=== PATIENT | female | born 1955 | race Caucasian/White ===

== ENCOUNTER 2024-04-22 16:10 | Inpatient (IN) | payer OTHER ==
[~2024-04-22] VITALS: Ht 172.7 cm; Wt 144.7 kg
[~2024-04-22 16:10] MED LIST: CEPH500C16 PO; LISI-953 PO
[2024-04-22 16:13] VITALS: BP 131/70; PULSE 88; RESP 16; TEMP 98; O2SAT 92
[2024-04-22] MEDS: ACETAMINOPHEN EXTRA STRENGTH 500 MG TAB PO ONE (18:54)
[2024-04-22 20:34] LABS: BASOPHILS # (AUTO) 0.1 K/uL (0.00-0.22); BASOPHILS % (AUTO) 0.7 % (0.0-2.0); EOSINOPHILS # (AUTO) 0.5 K/uL (0-0.4); EOSINOPHILS % (AUTO) 6.1 % (0.0-4.0); HEMATOCRIT 41.3 % (36-48); HEMOGLOBIN 13.9 g/dL (12.0-16.0); LYMPHOCYTES # (AUTO) 3.1 K/uL (2.5-16.5); LYMPHOCYTES % (AUTO) 34.2 % (20.5-51.1); MEAN CORPUSCULAR HEMOGLOBIN 31 pg (27-31); MEAN CORPUSCULAR HGB CONC 34 g/dL (33-37); MEAN CORPUSCULAR VOLUME 91.9 fL (80-94); MONOCYTES # (AUTO) 0.6 K/uL (0.8-1.0); MONOCYTES % (AUTO) 6.2 % (1.7-9.3); NEUTROPHILS # (AUTO) 4.7 K/uL (1.8-7.7); NEUTROPHILS % (AUTO) 52.8 % (42.2-75.2); PLATELET COUNT (AUTO) 246 K/uL (140-450); RED CELL DISTRIBUTION WIDTH 13.4 % (11.6-13.7)
[2024-04-22 20:45] LABS: ANION GAP 8.8 (8-16); CALCIUM 9.2 mg/dL (8.5-10.1); CARBON DIOXIDE 30.8 mmol/L (21-32); CREATININE 0.8 mg/dL (0.6-1.3); POTASSIUM 3.6 mmol/L (3.5-5.1)
[2024-04-22 22:36] LABS: APPEARANCE,URINE CLEAR (CLEAR); BILIRUBIN,URINE NEGATIVE (NEGATIVE); BLOOD, URINE NEGATIVE (NEGATIVE); COLOR,URINE YELLOW (YELLOW); LEUKOCYTE ESTERASE ,URINE 1+ (NEGATIVE); NITRITE, URINE POSITIVE (NEGATIVE); PROTEIN,URINE TRACE (NEGATIVE); UGLUCOSE 2+ (NEGATIVE); UROBILINOGEN,URINE 0.2 EU/dL (0.2 - 1)
[2024-04-22 22:41] LABS: BACTERIA,URINE >30 (MANY) /HPF (None Seen); MUCUS,URINE 1+ /LPF (None Seen); RBC,URINE 0-5 /HPF (0-5); SQUAMOUS EPITHELIAL CELL,UR 0-3 (FEW) /LPF (0-3 (FEW)); WBC,URINE TOO MANY TO COUNT /HPF (0-5)
[2024-04-22] MEDS ORDERED: NITR100C7 PO (22:51)
[2024-04-22] MEDS ORDERED: ACET500T99 PO ×2 (22:51→23:51)
[2024-04-22] MEDS ORDERED: ALBUTEROL 0.083% 2.5 MG/3 ML NEBU INH ONE (23:41)
[2024-04-22] MEDS ORDERED: IPRATROPIUM 0.02% 0.5 MG/2.5 ML NEBU INH ONE (23:41)
[2024-04-22] MEDS ORDERED: CALC500C17 PO (23:51)
[2024-04-22] MEDS ORDERED: CLON0.1T16 PO (23:51)
[2024-04-22] MEDS ORDERED: ACET-2619 PO (23:51)
[2024-04-22] MEDS ORDERED: DULO60EC1 PO (23:51)
[2024-04-22] MEDS ORDERED: IBUP-2213 PO (23:51)
[2024-04-22] MEDS ORDERED: FLEPED RC (23:51)
[2024-04-22] MEDS ORDERED: ASPI-1822 PO (23:51)
[2024-04-22] MEDS ORDERED: GLUC1PDS1 SUBQ (23:51)
[2024-04-22] MEDS ORDERED: GABA300C PO (23:51)
[2024-04-22] MEDS ORDERED: BISA-213 RC (23:51)
[2024-04-22] MEDS ORDERED: CRAN450T5 PO (23:51)
[2024-04-22] MEDS ORDERED: ALBU0.0912 INH (23:51)
[2024-04-22] MEDS ORDERED: BIOT10002 PO (23:51)
[2024-04-22] MEDS ORDERED: FLOR250 PO (23:51)
[2024-04-22] MEDS ORDERED: DOCU-299 PO (23:51)
[2024-04-22] MEDS ORDERED: LANTUS SUBQ (23:57)
[2024-04-22] MEDS ORDERED: INSU100S5 SUBQ (23:57)
[2024-04-23] MEDS ORDERED: LINA5TAB PO (00:06)
[2024-04-23] MEDS ORDERED: METF-346 PO (00:06)
[2024-04-23] MEDS ORDERED: ACET-5636 PO (00:06)
[2024-04-23] MEDS ORDERED: ATRN INH (00:06)
[2024-04-23] MEDS ORDERED: LOSA-272 PO (00:06)
[2024-04-23] MEDS ORDERED: PANT40EC PO (00:06)
[2024-04-23] MEDS ORDERED: ROPI0.2523 PO (00:06)
[2024-04-23] MEDS ORDERED: METH-1681 PO (00:06)
[2024-04-23] MEDS ORDERED: LID5T TP (00:06)
[2024-04-23] MEDS ORDERED: NITR0.4T2 SL (00:06)
[2024-04-23] MEDS ORDERED: MECL-303 PO (00:06)
[2024-04-23] MEDS: IPRATROPIUM 0.02% 0.5 MG/2.5 ML NEBU INH SCH (00:31)
[2024-04-23] MEDS: ALBUTEROL 0.083% 2.5 MG/3 ML NEBU INH SCH (00:32)
[2024-04-23] MEDS ORDERED: cefTRIAXone 1,000 MG VIAL ONE (03:57)
[2024-04-23 08:05] VITALS: PULSE 72; RESP 20; O2SAT 92
[2024-04-23] MEDS ORDERED: DEXTROSE 50% 50 ML SYR IVP PRN (12:05)
[2024-04-23 12:39] LABS: BASOPHILS # (AUTO) 0.1 K/uL (0.00-0.22); EOSINOPHILS # (AUTO) 0.4 K/uL (0-0.4); EOSINOPHILS % (AUTO) 4.9 % (0.0-4.0); HEMATOCRIT 43.6 % (36-48); HEMOGLOBIN 14.6 g/dL (12.0-16.0); LYMPHOCYTES # (AUTO) 2.2 K/uL (2.5-16.5); LYMPHOCYTES % (AUTO) 27.6 % (20.5-51.1); MEAN CORPUSCULAR HEMOGLOBIN 31 pg (27-31); MEAN CORPUSCULAR HGB CONC 34 g/dL (33-37); MEAN CORPUSCULAR VOLUME 92.2 fL (80-94); MONOCYTES # (AUTO) 0.4 K/uL (0.8-1.0); MONOCYTES % (AUTO) 5.3 % (1.7-9.3); NEUTROPHILS # (AUTO) 4.8 K/uL (1.8-7.7); NEUTROPHILS % (AUTO) 61.2 % (42.2-75.2); PLATELET COUNT (AUTO) 249 K/uL (140-450); RED BLOOD CELL COUNT(AUTO) 4.74 MIL/uL (4.20-5.40); RED CELL DISTRIBUTION WIDTH 13.6 % (11.6-13.7); WHITE BLOOD COUNT (AUTO) 7.8 K/uL (4.8-10.8)
[2024-04-23 13:01] LABS: ANION GAP 9.6 (8-16); CALCIUM 9.3 mg/dL (8.5-10.1); CARBON DIOXIDE 29.9 mmol/L (21-32); CREATININE 0.7 mg/dL (0.6-1.3); POTASSIUM 3.5 mmol/L (3.5-5.1); TOTAL BILIRUBIN 0.3 mg/dL (0.0-1.0); TOTAL PROTEIN, SERUM 7.5 g/dL (6.4-8.2)
[2024-04-23 16:00] VITALS: BP 140/84; PULSE 82; RESP 20; TEMP 98.8; O2SAT 95
[2024-04-23] MEDS: MORPHINE SULFATE 4 MG/ML SYR IVP PRN (16:12)
[2024-04-23] MEDS: BLOOD GLUCOSE MONITORING 1 DEV DEV FS SCH (16:20)
[2024-04-23] MEDS: INSULIN LISPRO SLIDING SCALE 100 UNITS/ML VIAL SUBQ PRN (16:23)
[2024-04-23 20:00] VITALS: BP 177/94; PULSE 82; PULSE 96; RESP 20; TEMP 98.2; O2SAT 95; O2SAT 96
[2024-04-23 20:08] VITALS: O2SAT 95
[2024-04-23] MEDS: HYDROcodone/APAP 5/325 MG 1 TAB TAB PO PRN (20:31)
[2024-04-24 04:00] VITALS: BP 139/92; PULSE 87; RESP 19; TEMP 97.4; O2SAT 95
[2024-04-24] MEDS: cefTRIAXone 1,000 MG VIAL ONE (04:16)
[2024-04-24 07:01] LABS: BASOPHILS # (AUTO) 0.1 K/uL (0.00-0.22); EOSINOPHILS # (AUTO) 0.5 K/uL (0-0.4); EOSINOPHILS % (AUTO) 5.2 % (0.0-4.0); HEMATOCRIT 41.3 % (36-48); HEMOGLOBIN 14.1 g/dL (12.0-16.0); LYMPHOCYTES # (AUTO) 3.8 K/uL (2.5-16.5); LYMPHOCYTES % (AUTO) 43.3 % (20.5-51.1); MEAN CORPUSCULAR HEMOGLOBIN 31 pg (27-31); MEAN CORPUSCULAR HGB CONC 34 g/dL (33-37); MEAN CORPUSCULAR VOLUME 91.5 fL (80-94); MONOCYTES # (AUTO) 0.6 K/uL (0.8-1.0); MONOCYTES % (AUTO) 6.5 % (1.7-9.3); NEUTROPHILS # (AUTO) 3.9 K/uL (1.8-7.7); PLATELET COUNT (AUTO) 266 K/uL (140-450); RED BLOOD CELL COUNT(AUTO) 4.51 MIL/uL (4.20-5.40); RED CELL DISTRIBUTION WIDTH 13.5 % (11.6-13.7); WHITE BLOOD COUNT (AUTO) 8.8 K/uL (4.8-10.8)
[2024-04-24 07:42] LABS: ANION GAP 9.8 (8-16); CALCIUM 9.1 mg/dL (8.5-10.1); CARBON DIOXIDE 27.6 mmol/L (21-32); CREATININE 0.8 mg/dL (0.6-1.3); POTASSIUM 3.4 mmol/L (3.5-5.1); TOTAL BILIRUBIN 0.2 mg/dL (0.0-1.0); TOTAL PROTEIN, SERUM 7.3 g/dL (6.4-8.2)
[2024-04-24 08:00] VITALS: BP 165/78; PULSE 83; RESP 18; TEMP 96.9; O2SAT 100
[2024-04-24] MEDS: ACETAMINOPHEN 325 MG TAB PO PRN (10:00)
[2024-04-24 16:00] VITALS: BP 159/84; PULSE 83; RESP 18; TEMP 97.6; O2SAT 93
[2024-04-24 20:00] VITALS: BP 155/76; PULSE 86; RESP 18; TEMP 97.5; O2SAT 98
[2024-04-24 20:13] VITALS: O2SAT 98
[2024-04-24] MEDS: ZOLPIDEM 5 MG TAB PO PRN (22:16)
[2024-04-24] MEDS: INSULIN LANTUS 100 UNITS/ML 10 ML VIAL SUBQ SCH (22:25)
[2024-04-25 04:00] VITALS: BP 158/95; PULSE 93; RESP 18; TEMP 98; O2SAT 95
[2024-04-25 06:48] LABS: BASOPHILS % (AUTO) 0.6 % (0.0-2.0); EOSINOPHILS # (AUTO) 0.4 K/uL (0-0.4); EOSINOPHILS % (AUTO) 5.2 % (0.0-4.0); HEMATOCRIT 43.1 % (36-48); HEMOGLOBIN 14.6 g/dL (12.0-16.0); LYMPHOCYTES # (AUTO) 2.7 K/uL (2.5-16.5); LYMPHOCYTES % (AUTO) 31.9 % (20.5-51.1); MEAN CORPUSCULAR HEMOGLOBIN 31 pg (27-31); MEAN CORPUSCULAR HGB CONC 34 g/dL (33-37); MEAN CORPUSCULAR VOLUME 91.2 fL (80-94); MONOCYTES # (AUTO) 0.6 K/uL (0.8-1.0); MONOCYTES % (AUTO) 7.6 % (1.7-9.3); NEUTROPHILS # (AUTO) 4.6 K/uL (1.8-7.7); NEUTROPHILS % (AUTO) 54.7 % (42.2-75.2); PLATELET COUNT (AUTO) 263 K/uL (140-450); RED BLOOD CELL COUNT(AUTO) 4.72 MIL/uL (4.20-5.40); RED CELL DISTRIBUTION WIDTH 13.4 % (11.6-13.7); WHITE BLOOD COUNT (AUTO) 8.4 K/uL (4.8-10.8)
[2024-04-25 07:11] LABS: ALBUMIN 3.1 g/dL (3.4-5.0); ANION GAP 9.7 (8-16); CALCIUM 9.3 mg/dL (8.5-10.1); CARBON DIOXIDE 28.7 mmol/L (21-32); CREATININE 0.8 mg/dL (0.6-1.3); POTASSIUM 3.4 mmol/L (3.5-5.1); TOTAL BILIRUBIN 0.3 mg/dL (0.0-1.0); TOTAL PROTEIN, SERUM 7.5 g/dL (6.4-8.2)
[2024-04-25 08:00] VITALS: BP 185/91; PULSE 78; RESP 18; TEMP 98.1; O2SAT 97
[2024-04-25] MEDS: lisinopriL 20 MG TAB PO SCH (08:51)
[2024-04-25] MEDS ORDERED: LEVO750T75 PO (14:54)
[2024-04-25] MEDS: POTASSIUM CHLORIDE 10 MEQ TABER PO SCH (14:55)
[2024-04-25] MEDS ORDERED: HYDR-1098 PO (14:55)
[2024-04-25 16:00] VITALS: BP 119/82; PULSE 81; RESP 18; TEMP 97.9; O2SAT 96
[2024-04-25 20:09] VITALS: O2SAT 95
== END 2024-04-25 19:55 | DRG 552 ==
LOC: MED 16:10 → MMU 23:29 → MTU 04-23 05:49
PROVIDERS: ADMIT Family Medicine; ATTEND Family Medicine
DX: M50.30 Other cervical disc degeneration, unspecified cervical region (principal); N12 Tubulo-interstitial nephritis, not specified as acute or chronic; E44.0 Moderate protein-calorie malnutrition; Z68.42 Body mass index [BMI] 45.0-49.9, adult; N39.0 Urinary tract infection, site not specified; M51.379 Other intervertebral disc degeneration, lumbosacral region without mention of lumbar back pain or lower extremity pain; E78.5 Hyperlipidemia, unspecified; N18.9 Chronic kidney disease, unspecified; J84.10 Pulmonary fibrosis, unspecified; J45.909 Unspecified asthma, uncomplicated; I50.9 Heart failure, unspecified; Z86.73 Personal history of transient ischemic attack (TIA), and cerebral infarction without residual deficits; Z79.899 Other long term (current) drug therapy; Z88.8 Allergy status to other drugs, medicaments and biological substances; E11.65 Type 2 diabetes mellitus with hyperglycemia
CPT/HCPCS: 36415; 70450; 71045; 72125; 72131; 73030; 80048; 80053; 81001; 82140; 82948; 85025; 87040; 87081; 87086; 87186; 97163-GP; 97530; 99285; J0696; J1815; J2270; J7060; J7613; J7644; Q0092